=== PATIENT | female | born 1990 | race African-American/Black ===

== ENCOUNTER 2021-02-26 18:02 | Emergency (ER) | payer BC ==
[2021-02-27 07:34] LABS: SARS-CoV-2 PCR by NAA DETECTED (NotDetected)
== END 2021-02-26 18:51 | disposition home or self-care (01) ==
LOC: BURERS 18:02
DX: U07.1 COVID-19 (principal); E11.9 Type 2 diabetes mellitus without complications
CPT/HCPCS: 99283; U0003; U0005

== ENCOUNTER 2021-08-15 18:48 | Emergency (ER) | payer BC ==
[2021-08-15] MEDS ORDERED: Ibuprofen 800 MG TAB ONE (19:27)
[2021-08-15 19:38] LABS: Bilirubin Moderate (Negative); Blood, Urine Moderate (Negative); Clarity Clear (Clear); Glucose, Urine (Dipstick) 100 mg/dL (Negative); Ketone, Urine 40 mg/dL (Negative); Leukocyte Negative (Negative); Nitrite Negative (Negative); Protein, Urine (Dipstick) 100 mg/dL (Neg-Trace)
[2021-08-15 19:41] LABS: Specific Gravity, Urine 1.037 (1.002-1.036)
[2021-08-15 19:47] LABS: Bacteria/HPF Rare-Few HPF (None Seen); Mucous/LPF 2+ LPF (<2+); Transitional Epithelial 0-3 HPF (None Seen)
[2021-08-15 19:48] LABS: Epithelial Cast 0-3 LPF (None Seen)
[2021-08-15 20:15] LABS: Hemoglobin 10.7 g/dL (12.0-16.0); Mean Corpuscular HGB CONC 30.2 g/dL (32.0-36.0); Mean Corpuscular Hemoglobin 21.6 pg (27.0-31.0); Mean Corpuscular Volume 71.3 fL (78.0-98.0); Mean Platelet Volume 12.1 fL (7.4-10.4); Platelet Count 163 thou/uL (130-400); RBC Distribution Width 17.7 % (11.5-14.5); Red Blood Cell (RBC) Count 4.96 mill/uL (4.20-5.40); White Blood Cell (WBC) Count 9.5 thou/uL (4.8-10.8)
[2021-08-15 20:16] LABS: #Basophils 0.1 thou/uL (0.0-0.2); #Lymphocytes 1.8 thou/uL (1.20-3.40); #Monocytes 0.8 thou/uL (0.11-0.59); #Neutrophils 6.9 thou/uL (1.40-6.50); %Basophils 0.8 % (0.0-1.0); %Eosinophils 0.1 % (0.0-10.0); %Lymphocytes 18.4 % (21.0-51.0); %Neutrophils 72.7 % (42.0-75.0)
[2021-08-15 20:20] LABS: ALT (SGPT) 31 U/L (8-55); AST (SGOT) 22 U/L (5-34); Albumin 3.8 g/dL (3.5-5.0); Alkaline Phosphatase 75 U/L (40-110); Anion Gap 13 mmol/L (10-20); BUN (Urea Nitrogen) 7 mg/dL (7.0-18.7); Bilirubin, Total 0.9 mg/dL (0.2-1.2); Calc. Creatinine Clearance 0 mL/min (70-130); Calcium 8.5 mg/dL (7.8-10.44); Carbon Dioxide 21 mmol/L (22-29); Chloride 101 mmol/L (98-107); Globulin 3.8 g/dL (2.4-3.5); Glucose 244 mg/dL (70-105); Lipase 34 U/L (8-78); Potassium 3.5 mmol/L (3.5-5.1); Protein, Total 7.6 g/dL (6.0-8.3); Sodium 131 mmol/L (136-145)
[2021-08-15 20:34] LABS: Bicarbonate (HCO3v) 20.7 mmol/L (22.0-28.0); CO2 Tension (PvCO2) 32.1 mmHg (42.0-51.0); Calcium, Ionized 1.04 mmol/L (1.15-1.33); Chloride 99 mmol/L (98-107); Potassium 3.5 mmol/L (3.5-5.1); Sodium 133 mmol/L (138-145); T. Carbon Dioxide 21.7 mmol/L (22.0-28.0); vO2 Saturation-calc 99.4 % (60.0-85.0)
[2021-08-15 20:55] LABS: Anisocytosis SLIGHT = 6-15 cells (100X) (0-5/hpf); Band 18 % (5-11); Large Platelets SLIGHT; Lymphocytes 14 % (21-51); MDiff Complete? YES; Microcytosis SLIGHT = 6-15 cells (100X) (0-5/hpf); Monocytes 9 % (0-10); Neutrophil 59 % (42-75); Platelet Morphology Comment Appears Adequate
[2021-08-16 11:15] LABS: SARS-CoV-2 PCR by NAA Not Detected (NotDetected)
== END 2021-08-15 21:00 | disposition home or self-care (01) ==
LOC: BURERS 18:48
DX: B34.9 Viral infection, unspecified (principal); E11.65 Type 2 diabetes mellitus with hyperglycemia; E28.2 Polycystic ovarian syndrome; Z20.822 Contact with and (suspected) exposure to COVID-19
CPT/HCPCS: 36416; 71045; 80053; 81003; 81015; 82330; 82803; 83690; 85014; 85025; 87804; 94760; U0003; U0005

== ENCOUNTER 2021-08-18 16:13 | Emergency (ER) | payer BC ==
[2021-08-18] MEDS ORDERED: Boostrix 0.5 ML (Tdap) VIAL ONE (17:26)
[2021-08-18 17:30] LABS: #Basophils 0.1 thou/uL (0.0-0.2); #Lymphocytes 1.6 thou/uL (1.20-3.40); #Monocytes 0.8 thou/uL (0.11-0.59); #Neutrophils 6.9 thou/uL (1.40-6.50); %Basophils 0.6 % (0.0-1.0); %Eosinophils 0.5 % (0.0-10.0); %Lymphocytes 16.8 % (21.0-51.0); %Monocytes 8.2 % (0.0-10.0); %Neutrophils 73.8 % (42.0-75.0); Hemoglobin 10.3 g/dL (12.0-16.0); Mean Corpuscular HGB CONC 30.1 g/dL (32.0-36.0); Mean Corpuscular Hemoglobin 21.4 pg (27.0-31.0); Mean Platelet Volume 12.8 fL (7.4-10.4); Platelet Count 196 thou/uL (130-400); Red Blood Cell (RBC) Count 4.83 mill/uL (4.20-5.40); White Blood Cell (WBC) Count 9.3 thou/uL (4.8-10.8)
[2021-08-18 17:32] LABS: MDiff Complete? YES
[2021-08-18] MEDS ORDERED: Amoxicillin/Potassium Clav 875 MG TAB ONE ×2 (17:35→17:58)
[2021-08-18 17:47] LABS: ALT (SGPT) 22 U/L (8-55); AST (SGOT) 16 U/L (5-34); Albumin 3.8 g/dL (3.5-5.0); Alkaline Phosphatase 75 U/L (40-110); Anion Gap 16 mmol/L (10-20); BUN (Urea Nitrogen) 9 mg/dL (7.0-18.7); Bilirubin, Total 0.9 mg/dL (0.2-1.2); Calc. Creatinine Clearance 0 mL/min (70-130); Carbon Dioxide 21 mmol/L (22-29); Chloride 102 mmol/L (98-107); Glucose 233 mg/dL (70-105); Potassium 3.6 mmol/L (3.5-5.1); Protein, Total 7.8 g/dL (6.0-8.3); Sodium 135 mmol/L (136-145)
== END 2021-08-18 18:11 | disposition home or self-care (01) ==
LOC: BURERS 16:13
DX: L02.215 Cutaneous abscess of perineum (principal); E11.65 Type 2 diabetes mellitus with hyperglycemia
CPT/HCPCS: 36415; 56405; 80053; 85025; 87040; 87070; 87205; 90471; 90715